=== PATIENT | male | born 1950 | race Two or more races ===

== ENCOUNTER 2019-12-30 14:59 | Emergency (ER) | payer OTHER ==
[~2019-12-30] VITALS: Ht 182.9 cm; Wt 118.8 kg
[~2019-12-30 14:59] MED LIST: AVAPRO300 MG; GLUCOTROL5 MG/BOTTL; LASIX20 MG; LoPRESSOR 100MG TAB PO; METFORMIN HCL850 MG; METOPROLOL SUCC50 MG; NORVASC5 MG; PRAVASTATIN SOD20 MG
[2019-12-30] MEDS ORDERED: FORTAMET1000 MG PO (15:25)
[2019-12-30] MEDS ORDERED: PROTONIX20 MG PO (15:25)
[2019-12-30] MEDS ORDERED: HYDRALAZINE HCL25 MG PO (15:27)
[2019-12-30] MEDS ORDERED: PRAVASTATIN SOD20 MG PO (15:27)
[2019-12-30] MEDS ORDERED: PRADAXA150 MG PO (15:27)
[2019-12-30] MEDS ORDERED: LANOXIN125 MCG (15:28)
== END 2019-12-30 18:46 | disposition home or self-care (01) ==
LOC: ER 14:59
DX: G45.8 Other transient cerebral ischemic attacks and related syndromes (principal); R47.81 Slurred speech; R53.1 Weakness

== ENCOUNTER 2022-04-12 16:57 | Emergency (ER) | payer OTHER ==
[~2022-04-12] VITALS: Ht 182.9 cm; Wt 130.2 kg
[~2022-04-12 16:57] MED LIST changes: +FORTAMET1000 MG PO; +HYDRALAZINE HCL25 MG PO; +LANOXIN125 MCG; +PRADAXA150 MG PO; +PRAVASTATIN SOD20 MG PO; +PROTONIX20 MG PO
[2022-04-12] MEDS ORDERED: ALDACTONE25 MG (17:21)
[2022-04-12] MEDS ORDERED: UTIX (17:21)
[2022-04-12] MEDS ORDERED: LEVOFLOXACIN5 ML PO (17:22)
== END 2022-04-12 21:23 | disposition home or self-care (01) ==
LOC: ER 16:57
DX: N39.0 Urinary tract infection, site not specified (principal); E11.9 Type 2 diabetes mellitus without complications; Z79.84 Long term (current) use of oral hypoglycemic drugs; I50.9 Heart failure, unspecified; Z88.0 Allergy status to penicillin